=== PATIENT | female | born 2000 | race Caucasian/White ===

== ENCOUNTER 2023-12-22 21:15 | Emergency (ER) | payer BC, MEDICAID ==
[2023-12-22 22:02] VITALS: RESP 18; TEMP 97.7; O2SAT 99
--- NOTE | 2023-12-22 22:41 | ERPHSYRPT ---
- History of Present Illness Time Seen by Provider: 12/22/23 22:40 Source: patient Exam Limitations: no limitations Patient Subjective Stated Complaint: pt states that she has been bleeding since monday. pt states that she does not know if she is . pt states that she is having back pain and lower left abd pain Triage Nursing Assessment: pt ambulated into into the er; pt is axo x4; pt states 7/10 pain to lower back and left lower abd; active bowel sounds in all quads; abd soft, round, tender; pt denies N/V/D; skin PDW; no respiratory d istress present; hypertensive Physician History: The patient presents with concerns of a possible miscarriage. Symptoms began on Monday with lower back pain, which then spread to the left hip and later to the right hip over the course of a few days. Bleeding began today, and she has not gone through more than a couple of panty liners. Typically, cramping would start the day before her period, but this time the symptoms have persisted since Monday. Her last menstrual period started on November 09, but she describes her menstrual cycles as very irregular since stopping control in 2020. She notes that the current cramps feel different and much stronger than usual, describing them as 'the worst ones' she's ever had. During the review of symptoms, she reports experiencing a little nausea, which she attributes to cramping. No vomiting, fever, burning during urination, or blood in the urine. Allergies/Adverse Reactions: No Known Drug Allergies Allergy (Unverified 12/22/23 21:44) Home Medications: No Reportable Medications [No Reported Medications] 12/22/23 [History] Hx Tetanus, Diphtheria Vaccination/Date Given: Yes Hx Influenza Vaccination/Date Given: No Hx Pneumococcal Vaccination/Date Given: No Travel Risk - International Travel Have you traveled outside of the country in past 3 weeks: No - Emerging Infectious Disease Are you exhibiting symptoms associated with any current EIDs: No - Past Medical History Pertinent Past Medical History: No - Past Surgical History Past Surgical History: No - Female History Hx Last Menstrual Period: 11/10/23 Hx Now: No - Social History Smoking Status: Light tobacco smoker Exposure to second hand smoke: Yes Drug Use: marijuana - Social Determinants of Health Will the patient participate in the screening: Yes Do you worry about a steady place to live?: No Do you have any problems with any of the following?: No known problems In the past 12 months,have you had to go without utilities?: No Transportation Issues: No Has anyone in your support network made you feel unsafe?: No Have you or anyone in your house had to go without enough: No - Nursing Vital Signs Nursing Vital Signs: Initial Vital Signs Pulse Rate 69 12/22/23 21:44 Blood Pressure 144/67 12/22/23 21:44 O2 Sat by Pulse Oximetry 97 12/22/23 21:44 Pain Scale Pain Intensity 3 - Physical Exam SpO2: 99 - Course Nursing assessment & vital signs reviewed: Yes Ordered Tests: Active Orders 24 hr Category Date Time Status CBC W DIFF Stat Lab 12/22/23 22:55 Completed CMP Stat Lab 12/22/23 22:55 Completed CULTURE,URINE Stat Lab 12/22/23 22:46 Received HCG QUALITATIVE, SERUM Stat Lab 12/22/23 22:55 Completed HCG, Quantitative (Inhouse) Stat Lab 12/22/23 22:55 Completed UA W/RFX UR CULTURE Stat Lab 12/22/23 22:46 Completed Lab/Rad Data: Laboratory Result Diagrams 12/22/23 22:55 12/22/23 22:55 Laboratory Results 12/22/23 12/22/23 12/22/23 Range/Units 22:55 22:55 22:55 WBC 10.3 H (3.98-10.04) x10^3/uL RBC 4.00 (3.93-5.22) x10^6/uL Hgb 12.9 (11.2-15.7) g/dL Hct 37.2 (34.1-44.9) % MCV 93.0 (79.4-94.8) fL MCH 32.3 H (25.6-32.2) pg MCHC 34.7 (32.2-35.5) g/dL RDW 11.9 (11.7-14.4) % Plt Count 265 (182-369) x10^3/uL MPV 11.0 (9.4-12.3) fL Gran % 68.3 (34.0-71.1) % Immature Gran % (Auto) 0.2 (0.001-0.429) % Nucleat RBC Rel Count 0.0 (0.00-0.2) % Eos # (Auto) 0.22 (0.04-0.36) x10^3/uL Immature Gran # (Auto) 0.02 (0.001-0.031) x10^3u/L Absolute Lymphs (auto) 2.44 (1.18-3.74) x10^3/uL Absolute Monos (auto) 0.55 (0.24-0.86) x10^3/uL Absolute Nucleated RBC 0.00 (0.00-0.012) x10^3u/L Lymphocytes % 23.7 (19.3-51.7) % Monocytes % 5.3 (4.7-12.5) % Eosinophils % 2.1 (0.7-5.8) % Basophils % 0.4 (0.1-1.2) % Absolute Granulocytes 7.03 H (1.56-6.13) x10^3/uL Basophils # 0.04 (0.01-0.08) x10^3/uL Sodium 143 (135-145) mmol/L Potassium 3.8 (3.5-5.1) mmol/L Chloride 107 (98-107) mmol/L Carbon Dioxide 24 (22-30) mmol/L Anion Gap 15.7 H (5-15) MEQ/L BUN 17 (7-17) mg/dL Creatinine 0.74 (0.52-1.04) mg/dL Estimated GFR 117.2 ML/MIN Glucose 107 H (74-106) mg/dL Calcium 9.4 (8.4-10.2) mg/dL Total Bilirubin 0.30 (0.2-1.3) mg/dL AST 26 (14-36) U/L ALT 19 (0-35) U/L Alkaline Phosphatase 53 (38-126) U/L Serum Total Protein 8.1 (6.3-8.2) g/dL Albumin 4.7 (3.5-5.0) g/dL Serum HCG, Qual NEGATIVE (NEGATIVE) Beta HCG, Quant < 2.39 mIU/ml Urine Color (Yellow) Urine Appearance (Clear) Urine pH (4.6-8.0) Ur Specific [place] (1.005-1.030) Urine Protein (Negative) Urine Glucose (UA) (Negative) mg/dL Urine Ketones (Negative) Urine Blood (Negative) Urine Nitrite (Negative) Urine Bilirubin (Negative) Urine Urobilinogen (0.2) mg/dL Ur Leukocyte Esterase (Negative) U Hyaline Cast (Auto) (0-2) /LPF Urine Microscopic RBC (0-5) /HPF Urine Microscopic WBC (0-5) /HPF Ur Epithelial Cells (None Seen) /HPF Urine Bacteria (None Seen) /HPF Urine Culture Reflexed (NO) 12/22/23 Range/Units 22:46 WBC (3.98-10.04) x10^3/uL RBC (3.93-5.22) x10^6/uL Hgb (11.2-15.7) g/dL Hct (34.1-44.9) % MCV (79.4-94.8) fL MCH (25.6-32.2) pg MCHC (32.2-35.5) g/dL RDW (11.7-14.4) % Plt Count (182-369) x10^3/uL MPV (9.4-12.3) fL Gran % (34.0-71.1) % Immature Gran % (Auto) (0.001-0.429) % Nucleat RBC Rel Count (0.00-0.2) % Eos # (Auto) (0.04-0.36) x10^3/uL Immature Gran # (Auto) (0.001-0.031) x10^3u/L Absolute Lymphs (auto) (1.18-3.74) x10^3/uL Absolute Monos (auto) (0.24-0.86) x10^3/uL Absolute Nucleated RBC (0.00-0.012) x10^3u/L Lymphocytes % (19.3-51.7) % Monocytes % (4.7-12.5) % Eosinophils % (0.7-5.8) % Basophils % (0.1-1.2) % Absolute Granulocytes (1.56-6.13) x10^3/uL Basophils # (0.01-0.08) x10^3/uL Sodium (135-145) mmol/L Potassium (3.5-5.1) mmol/L Chloride (98-107) mmol/L Carbon Dioxide (22-30) mmol/L Anion Gap (5-15) MEQ/L BUN (7-17) mg/dL Creatinine (0.52-1.04) mg/dL Estimated GFR ML/MIN Glucose (74-106) mg/dL Calcium (8.4-10.2) mg/dL Total Bilirubin (0.2-1.3) mg/dL AST (14-36) U/L ALT (0-35) U/L Alkaline Phosphatase (38-126) U/L Serum Total Protein (6.3-8.2) g/dL Albumin (3.5-5.0) g/dL Serum HCG, Qual (NEGATIVE) Beta HCG, Quant mIU/ml Urine Color Yellow (Yellow) Urine Appearance Clear (Clear) Urine pH 5.5 (4.6-8.0) Ur Specific [place] 1.020 (1.005-1.030) Urine Protein Negative (Negative) Urine Glucose (UA) Negative (Negative) mg/dL Urine Ketones Negative (Negative) Urine Blood Large A (Negative) Urine Nitrite Negative (Negative) Urine Bilirubin Negative (Negative) Urine Urobilinogen 0.2 (0.2) mg/dL Ur Leukocyte Esterase Trace A (Negative) U Hyaline Cast (Auto) NONE SEEN (0-2) /LPF Urine Microscopic RBC 51-100 A (0-5) /HPF Urine Microscopic WBC 3-5 (0-5) /HPF Ur Epithelial Cells Few (None Seen) /HPF Urine Bacteria Few A (None Seen) /HPF Urine Culture Reflexed YES (NO) - Progress Progress: improved Air Movement: good Progress Note: Possible or Menstrual Irregularity Presents with lower back pain radiating to the hips, starting Monday and progressively worsening. Last menstrual period began November 09, with irregular cycles since discontinuing control in 2020. Minimal bleeding started today. Differential diagnosis includes early , implantation bleeding, o r menstrual irregularity. No positive test yet. No associated symptoms of fever, dysuria, or hematuria. Mild nausea likely secondary to cramping. Discussed follow-up with TRANSLATION DIRECTOR for further evaluation and management of menstrual irregularity or planning. Discussed control options to regulate periods if not planning . - Order test - Recommend follow-up with TRANSLATION DIRECTOR for further evaluation and management of menstrual irregularity or planning - Discuss control options to regulate periods if not planning . Serum and urine HCG negative, CBC and CMP unremarkable, UA shows blood with trace LE w/o urinary sxs so not abx given at this time. Follow up with TRANSLATION DIRECTOR. Blood Culture(s) Obtained: No Antibiotics given: No Counseled pt/family regarding: lab results, diagnosis, need for follow-up Medical Desision Making - Diagnostic Testing Diagnostic test were ordered, analyzed, and reviewed by me: Yes Radiological Interpretation: Interpreted by me - Risk of complications Low Risk: Low risk of morbidity from additional dx testing or treatment - Departure Departure Disposition: Home Clinical Impression: Vaginal bleeding, Abdominal cramping Condition: Good Critical Care Time: No Referrals: DOCTOR,NO FAMILY [Primary Care Provider] - Follow up/PCP as directed Instructions: Heavy Periods ED
[2023-12-22 22:57] LABS: Absolute Neutrophil Ct (ANC) 7.03 x10^3/uL (1.56-6.13); BASOPHIL % 0.4 % (0.1-1.2); Basophil (Absolute #) 0.04 x10^3/uL (0.01-0.08); Eosinophil % 2.1 % (0.7-5.8); Eosinophil (Absolute #) 0.22 x10^3/uL (0.04-0.36); Hematocrit 37.2 % (34.1-44.9); Hemoglobin 12.9 g/dL (11.2-15.7); IMMATURE GRAN # 0.02 x10^3u/L (0.001-0.031); IMMATURE GRAN % 0.2 % (0.001-0.429); Lymphocyte (Absolute #) 2.44 x10^3/uL (1.18-3.74); Lymphocytes % 23.7 % (19.3-51.7); Mean Corpuscular Hemoglobin 32.3 pg (25.6-32.2); Mean Corpuscular Hgb Concent. 34.7 g/dL (32.2-35.5); Monocyte (Absolute #) 0.55 x10^3/uL (0.24-0.86); Monocytes % 5.3 % (4.7-12.5); Neutrophil % 68.3 % (34.0-71.1); Platelet Count 265 x10^3/uL (182-369); Red Cell Distribution Width 11.9 % (11.7-14.4); White Blood Count 10.3 x10^3/uL (3.98-10.04)
[2023-12-22 23:08] LABS: Appearance Clear (Clear); Bacteria Few /HPF (None Seen); Bilirubin Negative (Negative); Blood Large (Negative); Epithelial Cells Few /HPF (None Seen); Glucose, Urine Negative (Negative); Hyaline Casts NONE SEEN /LPF (0-2); Ketones Negative (Negative); Leukocyte Esterase Trace (Negative); Nitrite Negative (Negative); Ph 5.5 (4.6-8.0); Protein,Urine Dip Negative (Negative); RBC 51-100 /HPF (0-5); Urobilinogen 0.2 mg/dL (0.2)
[2023-12-22 23:17] LABS: HCG SERUM TEST NEGATIVE (NEGATIVE)
[2023-12-22 23:26] LABS: ALBUMIN 4.7 g/dL (3.5-5.0); ALKALINE PHOSPHATASE 53 U/L (38-126); ANION GAP 15.7 MEQ/L (5-15); BLOOD UREA NITROGEN 17 mg/dL (7-17); CHLORIDE 107 mmol/L (98-107); Calcium 9.4 mg/dL (8.4-10.2); Carbon Dioxide 24 mmol/L (22-30); Creatinine 1 0.74 mg/dL (0.52-1.04); EST GLOMERULAR FILTRATION RATE 117.2 ML/MIN; Glucose 107 mg/dL (74-106); HCG, Quantitative (Inhouse) < 2.39 mIU/ml; Potassium 3.8 mmol/L (3.5-5.1); SGOT/AST 26 U/L (14-36); SGPT/ALT 19 U/L (0-35); SODIUM 143 mmol/L (135-145); Total Protein 8.1 g/dL (6.3-8.2)
[2023-12-22 23:52] VITALS: BP 104/65; PULSE 70
== END 2023-12-22 23:55 | disposition home or self-care (01) ==
LOC: ED 21:15
DX: N93.9 Abnormal uterine and vaginal bleeding, unspecified (principal); R10.9 Unspecified abdominal pain
CPT/HCPCS: 36415; 80053; 81001; 84702; 84703; 85025; 87086; 99283